=== PATIENT | male | born 1975 | race Caucasian/White ===

== ENCOUNTER → 2023-08-20 07:20 | Outpatient (REF) | payer BC, SELFPAY | LOC: RAD 07:20 | PROVIDERS: ATTENDING PHYSICIAN Orthopaedic Surgery | DX: S62.021D Displaced fracture of middle third of navicular [scaphoid] bone of right wrist, subsequent encounter for fracture with routine healing (principal) | CPT/HCPCS: 73200 ==

== ENCOUNTER → 2024-03-24 10:23 | Outpatient (REF) | payer BC, SELFPAY | LOC: HWRAD 10:23 | PROVIDERS: ATTENDING PHYSICIAN Orthopaedic Surgery | DX: S63.391A Traumatic rupture of other ligament of right wrist, initial encounter (principal) | CPT/HCPCS: 73200 ==